=== PATIENT | male | born 1980 | race Asian ===

== ENCOUNTER 2018-08-04 16:02 | Emergency (ER) | payer SELFPAY ==
[~2018-08-04] VITALS: Ht 177.8 cm; Wt 101.2 kg
[2018-08-04 16:14] VITALS: Ht 177.8 cm; Wt 101.2 kg
[2018-08-04 17:17] LABS: BASOPHIL % 0.9 % (0-2); PLATELET COUNT 232 x10^3mcL (130-400); RED CELL DISTRIBUTION WIDTH 13.5 % (11.5-14.5)
[2018-08-04 17:20] LABS: CARBON DIOXIDE 29.2 mmol/L (21-32); CHLORIDE SERUM 101 mmol/L (98-107); GFR1 > 60 mL/min; GLUCOSE SERUM 108 mg/dL (74-106); POTASSIUM SERUM 3.4 mmol/L (3.5-5.1); SODIUM SERUM 139 mmol/L (136-145)
[2018-08-04 17:33] LABS: ALBUMIN 4.3 g/dL (3.4-5.0); ALKALINE PHOSPHATASE 88 U/L (46-116); ALT/SGPT 38 U/L (16-63); AST/SGOT 20 U/L (15-37); BILIRUBIN TOTAL 0.57 mg/dL (0.20-1.00); TOTAL PROTEIN, SERUM 8.1 g/dL (6.4-8.2)
[2018-08-04 18:28] VITALS: BP 128/78
== END 2018-08-04 18:41 | disposition home or self-care (01) ==
LOC: ED 16:02
PROVIDERS: Emergency Medicine
DX: F41.9 Anxiety disorder, unspecified (principal); R07.89 Other chest pain
CPT/HCPCS: 36415; 83880; 85378; J1885; Q0092